=== PATIENT | female | born 1965 | race Caucasian/White ===

== ENCOUNTER 2025-07-18 13:29 | Emergency (ER) | payer BC ==
[~2025-07-18] VITALS: Ht 162.6 cm; Wt 94.9 kg
[2025-07-18 13:36] VITALS: BP 167/100; PULSE 90; RESP 16; O2SAT 97
[2025-07-18] MEDS ORDERED: SULF1TAB49 PO (14:48)
--- NOTE | 2025-07-18 14:49 | Physician Documentation ---
History of Present Illness ~ Chief Complaint: See Chief Complaint Stated Complaint: SEE CHIEF Time Seen by MD: 13:50 Source: patient Mode of Arrival: POV Exam Limitations: no limitations HPI 60-year-old female has 2 abscesses to her outer labia that her friend took a look at yesterday and told her she needs to go in for antibiotics. Patient states 1 of them popped and started draining yesterday in the other 1 is a little more painful today. Patient states that she was bitten by a spider on her face that went away but then had a small abscess to the inner portion of her left arm which she states she popped in his placed in bandage on. No fevers no other associated symptoms Medication Reconciliation Allergies: Coded Allergies: No Known Allergies (Unverified , 07/18/25) Past Medical History Past Medical History: No Pertinent History Alcohol Use: None Drug Use: none Lives with: Family Lives In: Home Occupation: employed Review of Systems All Other Systems at this time: Reviewed and Negative Female Genitalia: Reports: see HPI Physical Exam Vital Signs: RN Vital Signs have been reviewed: Yes, Temperature: 98.7, Heart Rate: 90, Respiratory Rate: 16, BP: 167/100, Pulse Oximetry: 97, Weight: 94.900 Oxygen Flow Rate: 0 General Appearance: alert, WD/WN, no apparent distress Respiratory: lungs clear, normal breath sounds, no respiratory distress Chest: no accessory muscle use, chest non-tender Cardiovascular: normal peripheral pulses, regular rate, rhythm, no edema External Genitalia: lesions present, rash, swelling present, other (1-1/2 cm in diameter abscess to the left outer labia draining and 1 scabbed area abscess to the right lower labia draining) Skin 2 cm draining abscess to the left inner upper arm Progress Results/Orders Results/Orders Vital Signs 07/18/25 13:36 Temp 98.7 Pulse 90 Resp 16 B/P (MAP) 167/100 Pulse Ox 97 O2 Flow Rate 0 Medical Decision Making Findings Abscess to the arm and labial abscess both draining discussed that is bath antibiotics prescribed Departure Time of Disposition: 14:47 Disposition: 01 HOME / SELF CARE / HOMELESS Impression: Primary Impression: Abscess of genital labia Condition: Stable Discharge Instructions: Abscess, Care After Additional Instructions: Sitz bath, warm compress, even bath to help facilitate drainage of the abscess. Take antibiotics as prescribed. Follow up as needed Referrals: NO PRIMARY CARE PROVIDER (PCP) Prescriptions Sulfamethoxazole/Trimethoprim (Bactrim Ds Tablet) 800 Mg-160 Mg Tablet 1 TAB PO Q12H for 10 Days, #20 TAB Prov: CHEYANNE JACOB NP 07/18/25 Education Educated: Patient Educated regarding: diagnosis, treatment, need for follow up Signature Scribe Signature: No scribe Attestation: The note accurately reflects work and decisions made by me.Cheyanne Aguayo NP 07/18/25 14:49 CHEYANNE JACOB NP Jul 18, 2025 14:49
[2025-07-18 14:52] VITALS: TEMP 98.7
== END 2025-07-18 14:54 | disposition home or self-care (01) ==
LOC: ER 13:29
DX: N76.4 Abscess of vulva (principal); L02.414 Cutaneous abscess of left upper limb
CPT/HCPCS: 99283